=== PATIENT | female | born 1950 | race Caucasian/White ===

== ENCOUNTER 2020-09-06 14:42 | Outpatient (CLI) | payer MEDICARE, BC | END 2020-09-06 14:43 | disposition home or self-care (01) | LOC: MADLAB 14:42 | PROVIDERS: ATTEND Internal Medicine Gastroenterology | DX: R19.7 Diarrhea, unspecified (principal); R94.5 Abnormal results of liver function studies | CPT/HCPCS: 82705; 83630; 87045; 87046; 87324; 87328; 87329; 87427; 87449 ==

== ENCOUNTER 2022-10-04 10:54 | Emergency (ER) | payer BC, MEDICARE ==
[~2022-10-04 10:54] MED LIST: Atropine Sulfate 1 mg/10 ml Syringe ONE; Calcium Chloride 1 GM/10 ML Abboject SYRINGE ONE; EPINEPHrine 1 MG/10 ML Abboject SYRINGE ONE; Norepinephrine 4 MG/4 ML VIAL ONE; Sodium Bicarb 50 MEQ/50 ML Abboject 8.4% SYRINGE ONE; Sodium Chloride 0.9% 1,000 ML BAG ONE
[2022-10-04] MEDS ORDERED: Norepinephrine 4 MG/4 ML VIAL ONE (11:02)
[2022-10-04] MEDS ORDERED: EPINEPHrine 1 MG/ML VIAL ONE (11:19)
[2022-10-04] MEDS ORDERED: Calcium Gluc 4.6 MEQ/10 ML (100 MG/ML) ONE (11:19)
[2022-10-04] MEDS ORDERED: Calcium Chloride 1 GM/10 ML Abboject SYRINGE ONE ×2 (11:20)
[2022-10-04 11:36] LABS: #Basophils 0.1 thou/uL (0.0-0.2); #Lymphocytes 3.5 thou/uL (1.20-3.40); #Monocytes 0.5 thou/uL (0.11-0.59); #Neutrophils 11.3 thou/uL (1.40-6.50); %Basophils 0.9 % (0.0-1.0); %Eosinophils 0.2 % (0.0-10.0); %Lymphocytes 22.7 % (21.0-51.0); %Monocytes 3.4 % (0.0-10.0); %Neutrophils 72.7 % (42.0-75.0); Hemoglobin 8.1 g/dL (12.0-16.0); Mean Corpuscular HGB CONC 31.4 g/dL (32.0-36.0); Mean Corpuscular Hemoglobin 28.7 pg (27.0-31.0); Mean Corpuscular Volume 91.6 fl (78.0-98.0); Mean Platelet Volume 8.5 fL (7.4-10.4); Platelet Count 113 10x3/uL (130-400); RBC Distribution Width 15.1 % (11.5-14.5); Red Blood Cell (RBC) Count 2.81 mill/uL (4.20-5.40); White Blood Cell (WBC) Count 15.5 10x3/uL (4.8-10.8)
[2022-10-04 11:38] LABS: Platelet Morphology Comment Appears Decreased
[2022-10-04 11:44] LABS: Hypochromia SLIGHT = 6-15 cells (100X) (0-5/hpf); MDiff Complete? YES
[2022-10-04 11:45] LABS: Acetaminophen Less than 10.0 mcg/mL (10.0-30.0); Alcohol Less than 10 mg/dL (Less than 10); CK (CPK) 678 U/L (29-168); Magnesium 2.2 mg/dL (1.6-2.6); Salicylate Less than 8.0 mg/dL (15.0-30.0)
[2022-10-04 11:48] LABS: Bicarbonate (HCO3v) 24.4 mmol/L (22.0-28.0)
[2022-10-04 11:49] LABS: Base Excess-Venous -5.8 mmol/L (-2.0 to 3.0); Chloride 105 mmol/L (98-107); Hemoglobin - Calc 9.1 g/dL (12.0-16.0); Potassium 4.6 mmol/L (3.5-5.1); Sodium 144 mmol/L (138-145); T. Carbon Dioxide 26.8 mmol/L (22.0-28.0); vO2 Saturation-calc 97.7 % (60.0-85.0)
[2022-10-04 11:51] LABS: ALT (SGPT) 806 U/L (8-55); AST (SGOT) 3117 U/L (5-34); Albumin Less than 1.0 g/dL (3.4-4.8); Alkaline Phosphatase 115 U/L (40-110); Anion Gap 19 mmol/L (10-20); BUN (Urea Nitrogen) 21 mg/dL (9.8-20.1); Bilirubin, Total 0.3 mg/dL (0.2-1.2); Calc. Creatinine Clearance 0 mL/min (70-130); Calcium 9.2 mg/dL (7.8-10.44); Carbon Dioxide 21 mmol/L (23-31); Chloride 101 mmol/L (98-107); Estimated GFR 22; Globulin 1.7 g/dL (2.4-3.5); Potassium 5.2 mmol/L (3.5-5.1); Protein, Total 2.7 g/dL (5.8-8.1); Sodium 136 mmol/L (136-145)
[2022-10-04 11:57] LABS: Bilirubin Small (Negative); Blood, Urine Moderate (Negative); Clarity Clear (Clear); Glucose, Urine (Dipstick) Negative (Negative); Ketone, Urine Negative (Negative); Leukocyte Negative (Negative); Nitrite Negative (Negative); Protein, Urine (Dipstick) 30 mg/dL (Neg-Trace); Specific Gravity, Urine 1.025 (1.005-1.030); Urobilinogen 0.2 mg/dL (Less than 2)
[2022-10-04 12:04] LABS: Bacteria/HPF Rare-Few HPF (None Seen); Squamous Epithelial 0-3 HPF (0-3); WBC/HPF 0-3 HPF (0-3)
[2022-10-04 12:14] LABS: Amphetamine Not Detected (NotDetected); Barbiturates Screen Not Detected (NotDetected); Benzodiazepine Screen Detected (NotDetected); Cocaine Metabolite Screen Not Detected (NotDetected); Medtox Control Line Valid? VALID (VALID); Methadone Not Detected (NotDetected); Methamphetamine Not Detected (NotDetected); Opiate Screen Not Detected (NotDetected); Oxycodone Screen Not Detected (NotDetected); Phencyclidine (PCP) Not Detected (NotDetected); THC/Cannabinoid Screen Not Detected (NotDetected); Tricyclic Screen Not Detected (NotDetected)
[2022-10-04 12:24] LABS: CKMB 14.7 ng/mL (0-6.6)
[2022-10-04] MEDS ORDERED: Dextrose 50% Abboject 50 ML SYRINGE ONE (12:26)
[2022-10-04 12:43] LABS: Glucose 1254 mg/dL (83-110)
== END 2022-10-04 12:14 | disposition expired ==
LOC: MADERS 10:54
DX: I46.9 Cardiac arrest, cause unspecified (principal)
CPT/HCPCS: 36416; 51702; 80053; 80306; 80307; 81003; 81015; 82330; 82550; 82553; 82803; 83605; 83735; 83880; 84443; 84484; 85025; 92950; 93005; 96365; 96366; 96374; 96375; 96376; 36415-59; J0171; J0461; J0610; J7050; J7070; J7999